=== PATIENT | male | born 1950 | race Caucasian/White ===

== ENCOUNTER 2025-08-16 08:12 | Emergency (ER) | payer OTHER, SELFPAY ==
[2025-08-16 08:18] VITALS: BP 183/88
[2025-08-16 08:28] VITALS: BMI 39.2
--- NOTE | 2025-08-16 08:30 | ED.GENMED ---
History of Present Illness
<Portillo Chawla PA-C - Last Filed: 08/17/25 07:30>
General
Chief Complaint: Eye Problems
Time Seen by Provider: 08/16/25 08:23
History of Present Illness
History of Present Illness:
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
[facility]. 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 Followed up with janny marquez this morning where he was noted to have worsening exophthalmos and EOM limitation and thus was referred to the ED for stat MRI. He reports a
chronic headache that is unchanged. Feels that his diplopia is also unchanged. No night sweats, vomiting, or unintentional weight loss. Last MRI in July showed residual meningioma in the left anterior cavernous sinus, left superior orbital
fissure, and left orbital apex with some slight increase in size compared to the preoperative MRI
Review of Systems
<Portillo Chawla PA-C - Last Filed: 08/17/25 07:30>
Review of Systems
Allergies reviewed?: Yes
All Other Systems: ROS reviewed and negative except as documented in HPI and ROS
Phy Exam
<Portillo Chawla PA-C - Last Filed: 08/17/25 07:30>
Physical Exam
Physical Exam:
GEN: Well appearing, NAD, WDWN
HEENT: Oral mucosa moist, no scleral icterus. Moderate proptosis in the left
Cardiac: Regular rate
Lung: No respiratory distress, no tachypnea
MSK: No gross deformity or injuries
Skin: Good color, no pallor or jaundice, no rashes
Neuro: AO x3, moves all extremities freely left lateral rectus deficit unable to cross midline
Psych: Calm, cooperative
Course
<Portillo Chawla PA-C - Last Filed: 08/17/25 07:30>
Orders/Labs/Results
Orders:
Orders
08/16/25 08:29
Complete Blood Count/With Diff Urgent
Comprehensive Metabolic Panel Urgent
08/16/25 09:22
MR Brain W/o & With Contrast Urgent
Comment:
Reason For Exam: meningioma, L proptosis/EOM entrapment
Recent pill cam endoscopy?: No
Abnormal Lab Results
08/16/25
08:29
MCV 78.4 L fL
(80.0-94.0)
RDW 14.7 H %
(11.5-14.5)
BUN 22 H mg/dl
(9-20)
Glucose 159 H mg/dl
(70-99)
ALT 62 H U/L
(0-50)
08/16/25 08:29
08/16/25 08:29
Vital Signs
Initial and Last Documented VS:
Initial Vital Signs
Temp Pulse Resp BP Pulse Ox
97.5 F 49 20 183/88 98
08/16/25 08:18 08/16/25 08:18 08/16/25 08:18 08/16/25 08:18 08/16/25 08:18
Last Documented Vital Signs
Temp Pulse Resp BP Pulse Ox
97.5 F 49 20 152/82 96
08/16/25 08:18 08/16/25 08:18 08/16/25 08:18 08/16/25 09:00 08/16/25 12:15
<Lurdes Erickson PA-C - Last Filed: 08/16/25 23:20>
Orders/Labs/Results
Orders:
Orders
08/16/25 08:29
Complete Blood Count/With Diff Urgent
Comprehensive Metabolic Panel Urgent
08/16/25 09:22
MR Brain W/o & With Contrast Urgent
Comment:
Reason For Exam: meningioma, L proptosis/EOM entrapment
Recent pill cam endoscopy?: No
Abnormal Lab Results
08/16/25
08:29
MCV 78.4 L fL
(80.0-94.0)
RDW 14.7 H %
(11.5-14.5)
BUN 22 H mg/dl
(9-20)
Glucose 159 H mg/dl
(70-99)
ALT 62 H U/L
(0-50)
08/16/25 08:29
08/16/25 08:29
Vital Signs
Initial and Last Documented VS:
Initial Vital Signs
Temp Pulse Resp BP Pulse Ox
97.5 F 49 20 183/88 98
08/16/25 08:18 08/16/25 08:18 08/16/25 08:18 08/16/25 08:18 08/16/25 08:18
Last Documented Vital Signs
Temp Pulse Resp BP Pulse Ox
97.5 F 49 20 152/82 96
08/16/25 08:18 08/16/25 08:18 08/16/25 08:18 08/16/25 09:00 08/16/25 12:15
<Portillo Chawla PA-C - Last Filed: 08/17/25 07:30>
*Pulse Oximetry
SaO2: 98
Oxygen Mode of Delivery: Room air
<Lureds Erickson PA-C - Last Filed: 08/16/25 23:20>
*Pulse Oximetry
Patient hypoxic: no
*Critical Care Note
Total Time (30-74mins, 75-104mins- exclusive of procedures): Not Applicable
<Lurdes Erickson PA-C - Last Filed: 08/16/25 23:20>
Update Note
Update Note:
I assumed care of patient awaiting MRI results. Brain MRI with and without contrast shows a residual meningioma in the left cavernous sinus, left orbital apex, and left superior orbital fissure involving the proximal superior and lateral rectus
muscles and extending around the superior margin of the left optic nerve. No definitive MRI evidence for interval enlargement of tumor since last MRI last month. Patient is requesting to be discharged which is appropriate given that imaging is
unchanged. He has an appt with his radiation physician tomorrow. He was also advised to f/u with his neurosurgical team.
ED Attending Note
<Portillo Chawla PA-C - Last Filed: 08/17/25 07:30>
-
Portions of this chart may have been created with voice recognition software.� Occasional wrong word or��sound alike� substitutions may have occurred due to the inherent limitations of voice recognition software.
Discharge Plan
Departure
Patient Disposition: Home (Routine Discharge)
Date of Disposition: 08/16/25
Time of Disposition: 17:00
Patient with high blood pressure during this ER visit?: Yes
Discharge Problem:
Proptosis
Instructions: [facility] ([facility])
Referrals:
Joanne Hinkle MD [Family Provider, Internal Medicine]
Activity Restrictions/Additional Instructions:
Please follow-up with your radiation doctor tomorrow. You should also follow-up with your neurosurgeon.
Interventions
Interventions:
*Risk Screen - Suicide Last Done: 08/16/25 08:18
*General Assessment Last Done: 08/16/25 08:28
*Neglect/Abuse Screening Last Done: 08/16/25 08:28
*ED- Fall Risk Assessment Last Done: 08/16/25 08:28
*ED COVID-19 Vaccine History Last Done: 08/16/25 08:28
*ED Influenza Vaccine History Last Done: 08/16/25 08:28
*Nursing Disposition Last Done: 08/16/25 17:28
Discharge Date and Time
Discharge Date/Time: 08/16/25 17:29
Print Language: MONGOLIAN
[2025-08-16 08:37] VITALS: BP 168/72
[2025-08-16 08:54] LABS: Hematocrit 42.2 % (39.0-52.0); Hemoglobin 14.9 g/dL (13.0-18.0); Mean Corp Hgb Conc. 35.3 g/dL (33.0-37.0); Mean Corpuscular Volume 78.4 fL (80.0-94.0); Nucleated Red Blood Cells % 0 % (-); Platelet Count 273 10^3/uL (130-400); Red Cell Dist. Width 14.7 % (11.5-14.5)
[2025-08-16 09:00] VITALS: BP 152/82
[2025-08-16 09:20] LABS: ALT (SGPT) 62 U/L (0-50); AST (SGOT) 30 U/L (17-59); Albumin 4.4 g/dl (3.5-5.0); Alkaline Phosphatase 48 U/L (38-126); Blood Urea Nitrogen 22 mg/dl (9-20); Calcium 9.1 mg/dl (8.4-10.2); Carbon Dioxide 27 mmol/L (22-30); Chloride 107 mmol/L (98-107); Estimated Creatinine Clearance 78 ml/min; Glucose 159 mg/dl (70-99); Potassium 4.5 mmol/L (3.5-5.1); Sodium 139 mmol/L (135-145); Total Protein 6.9 g/dl (6.3-8.2); eGFR > 60.00
== END 2025-08-16 17:29 | disposition home or self-care (01) ==
LOC: EMR 08:12
PROVIDERS: Physician Assistant; EMERGENCY PHYSICIAN Emergency Medicine; FAMILY PHYSICIAN Internal Medicine
DX: H05.20 Unspecified exophthalmos (principal); D32.9 Benign neoplasm of meninges, unspecified
CPT/HCPCS: 99284; 70553; 80053; 85025; A9575